=== PATIENT | male | born 1985 | race Caucasian/White ===

== ENCOUNTER 2017-06-02 15:37 | Emergency (ER) | payer BC ==
[2017-06-02] MEDS ORDERED: Sodium Chloride 0.9% 1,000 ML IV ONE (15:52)
--- NOTE | 2017-06-02 16:13 | EDM.PDOC ---
ED HPI GENERAL MEDICAL PROBLEM - General Chief Complaint: Abdominal Pain Stated Complaint: ABDOMINAL PAIN AND CHEST PAIN Time Seen by Provider: 06/02/17 15:43 Source of Information: Reports: Patient History Limitations: Reports: No Limitations - History of Present Illness INITIAL COMMENTS - FREE TEXT/NARRATIVE: History of present illness: []Patient has a three-day history of diarrhea and diffuse abdominal cramping. Patient states the day that it started he was working in 19 hour workday that was more physical than normal any drink energy drinks. He is having about 8 episodes of nonbloody diarrhea a day. He also has a history of chronic pancreatitis. Alcohol abuse. He states he hasn't had a drink of alcohol in a couple weeks. He denies any vomiting, fevers or chills. Review of systems: As per history of present illness and below otherwise all systems reviewed and negative. Past medical history: As per history of present illness and as reviewed below otherwise noncontributory. Surgical history: As per history of present illness and as reviewed below otherwise noncontributory. Social history: No reported history of drug or alcohol abuse. Family history: As per history of present illness and as reviewed below otherwise noncontributory. Physical exam: General: Well developed, well nourished in NAD HEENT: Atraumatic, normocephalic, pupils reactive, negative for conjunctival pallor or scleral icterus, mucous membranes moist, throat clear, neck supple, nontender, trachea midline. Lungs: Clear to auscultation, breath sounds equal bilaterally, chest nontender. Heart: S1S2, regular, negative for clicks, rubs, or JVD. Abdomen: Soft, nondistended, moderate tenderness diffusely no rebound or guarding. Negative for masses or hepatosplenomegaly. Negative for costovertebral tenderness. Pelvis: Stable nontender. Genitourinary: Deferred. Rectal: Deferred. Extremities: Atraumatic, negative for cords or calf pain. Neurovascular unremarkable. Neuro: Awake, alert, oriented. Cranial nerves II through XII unremarkable. Cerebellum unremarkable. Motor and sensory unremarkable throughout. Exam nonfocal. Diagnostics: []Labs done are completely normal patient did not have any episodes of diarrhea while in the ED Therapeutics: []IV hydrated she declined pain meds Impression: []Diarrhea Plan: []Tramadol for pain, Imodium for diarrhea return if symptoms worsen follow-up with PMD Definitive disposition and diagnosis as appropriate pending reevaluation and review of above. Abdominal Pain Score (Numeric/FACES): 7 - Related Data Allergies Allergy/AdvReac Type Severity Reaction Status Date / Time No Known Allergies Allergy Verified 06/02/17 15:50 Home Meds: Home Meds Lipase/Protease/Amylase [Zensujatap DR 20,000 Unit] 2 cap PO TIDMEALS 06/02/17 [ History] traMADol [Ultram] 50 mg PO Q8H PRN #10 tablet 06/02/17 [Rx] Past Medical History Gastrointestinal History: Reports: Pancreatitis - Infectious Disease History Infectious Disease History: Reports: Chicken Pox Social & Family History - Family History Family Medical History: Noncontributory - Tobacco Use Smoking Status *Q: Current Every Day Smoker Years of Tobacco use: 10 Packs/Tins Daily: 0.2 Used Tobacco, but Quit: No - Caffeine Use Caffeine Use: Reports: Coffee - Recreational Drug Use Recreational Drug Use: No ED ROS GENERAL - Review of Systems Review Of Systems: See Below (See history of present illness) ED EXAM, GI/ABD - Physical Exam Exam: See Below (See history of present illness) Course - Vital Signs Last Recorded V/S: Last Vital Signs Temp 37.0 C 06/02/17 15:53 Pulse 80 06/02/17 16:45 Resp 16 06/02/17 16:45 BP 128/79 06/02/17 16:45 Pulse Ox 98 06/02/17 16:45 - Orders/Labs/Meds Orders: Active Orders 24 hr Category Date Time Status EKG Documentation Completion [RC] STAT Care 06/02/17 15:47 Active Chest 1V Frontal [CR] Stat Exams 06/02/17 15:48 Taken Saline Lock Insert [OM.PC] Stat Oth 06/02/17 15:47 Ordered Labs: Laboratory Tests 06/02/17 06/02/17 06/02/17 Range/Units 15:52 15:52 15:52 WBC 10.52 (4.0-11.0) K/uL RBC 4.94 (4.50-5.90) M/uL Hgb 14.1 (13.0-17.0) g/dL Hct 42.3 (38.0-50.0) % MCV 85.6 (80.0-98.0) fL MCH 28.5 (27.0-32.0) pg MCHC 33.3 (31.0-37.0) g/dL RDW Std Deviation 43.2 (28.0-62.0) fl RDW Coeff of Anastasiia 14 (11.0-15.0) % Plt Count 315 (150-400) K/uL MPV 9.40 (7.40-12.00) fL Neut % (Auto) 62.3 (48.0-80.0) % Lymph % (Auto) 24.6 (16.0-40.0) % Major % (Auto) 10.5 (0.0-15.0) % Eos % (Auto) 2.1 (0.0-7.0) % Baso % (Auto) 0.5 (0.0-1.5) % Neut # (Auto) 6.6 H (1.4-5.7) K/uL Lymph # (Auto) 2.6 H (0.6-2.4) K/uL Major # (Auto) 1.1 H (0.0-0.8) K/uL Eos # (Auto) 0.2 (0.0-0.7) K/uL Baso # (Auto) 0.1 (0.0-0.1) K/uL Nucleated RBC % 0.0 /100WBC Nucleated RBCs # 0 K/uL Sodium 138 (136-146) mmol/L Potassium 3.9 (3.5-5.1) mmol/L Chloride 105 (98-110) mmol/L Carbon Dioxide 25 (21-31) mmol/L BUN 11 (6.0-23.0) mg/dL Creatinine 1.0 (0.6-1.5) mg/dL Est Cr Clr Drug Dosing 123.18 mL/min Estimated GFR (MDRD) > 60.0 ml/min Glucose 88 (60-110) mg/dL Calcium 8.9 (8.8-10.8) mg/dL Total Bilirubin 0.6 (0.1-1.5) mg/dL AST 22 (5-40) IU/L ALT 32 (8-54) IU/L Alkaline Phosphatase 70 (40-150) Troponin I < 0.10 (0.0-0.29) NG/ML Total Protein 7.0 (6.0-8.0) g/dL Albumin 4.2 (3.5-5.0) g/dL Globulin 2.8 (2.0-3.5) g/dL Albumin/Globulin Ratio 1.5 (1.3-2.8) Amylase 54 (10-90) U/L Lipase 19 (7-80) U/L Meds: Medications Discontinued Medications Generic Name Dose Route Start Last Admin Trade Name Freq PRN Reason Stop Dose Admin Sodium Chloride 1,000 mls @ 999 mls/hr 06/02/17 15:52 06/02/17 16:14 Normal Saline IV 06/02/17 16:52 999 mls/hr .Bolus ONE Administration Departure - Departure Time of Disposition: 17:21 Disposition: Home, Self-Care 01 Condition: Good Clinical Impression: Diarrhea Qualifiers: Diarrhea type: unspecified type Qualified Code(s): R19.7 - Diarrhea, unspecified - Discharge Information Prescriptions: traMADol [Ultram] 50 mg PO Q8H PRN #10 tablet PRN Reason: Pain Forms: ED Department Discharge Additional Instructions: The following information is given to patients seen in the emergency department who are being discharged to home. This information is to outline your options for follow-up care. We provide all patients seen in our emergency department with a follow-up referral. The need for follow-up, as well as the timing and circumstances, are variable depending upon the specifics of your emergency department visit. If you don't have a primary care physician on staff, we will provide you with a referral. We always advise you to contact your personal physician following an emergency department visit to inform them of the circumstance of the visit and for follow-up with them and/or the need for any referrals to a consulting specialist. The emergency department will also refer you to a specialist when appropriate. This referral assures that you have the opportunity for follow-up care with a specialist. All of these measure are taken in an effort to provide you with optimal care, which includes your follow-up. Under all circumstances we always encourage you to contact your private physician who remains a resource for coordinating your care. When calling for follow-up care, please make the office aware that this follow-up is from your recent emergency room visit. If for any reason you are refused follow-up, please contact the [facility] Emergency Department at and asked to speak to the emergency department charge nurse. Tramadol for pain, Imodium for diarrhea primary care [facility] [place] [id number] - My Orders Last 24 Hours: My Active Orders 06/02/17 15:47 EKG Documentation Completion [RC] STAT Saline Lock Insert [OM.PC] Stat 06/02/17 15:48 Chest 1V Frontal [CR] Stat - Assessment/Plan Last 24 Hours: My Active Orders 06/02/17 15:47 EKG Documentation Completion [RC] STAT Saline Lock Insert [OM.PC] Stat 06/02/17 15:48 Chest 1V Frontal [CR] Stat
[2017-06-02 16:29] LABS: CHLORIDE,CL 105 mmol/L (98-110); SODIUM,NA 138 mmol/L (136-146)
[2017-06-02 17:32] VITALS: BP 134/70
--- NOTE | 2017-06-03 10:36 | CR ---
EXAM DATE: 06/02/17 PATIENT'S AGE: 31 Patient: JJ CAMPOS Facility: [place], [place] Site . Site : 1985 Study: XRay Chest [id number]/24/2017 5:31:25 PM Ordering Physician: Jose Engle Final Report: INDICATION: chest pain, abd pain x3 days INDICATION: Chest and abdominal pain. TECHNIQUE: Chest 1 view. COMPARISON: None FINDINGS: Cardiovascular and mediastinum: Heart size and vasculature are normal in caliber and appearance. Mediastinum is within normal limits. Lungs and pleural space: Lungs are clear. No sign of infiltrate or mass. No sign of pleural effusion. No pneumothorax. Bones and soft tissues: No significant findings. IMPRESSION: Lungs are clear. Dictated by Lukasz Dillon MD @ 06/02/2017 5:56:28 PM Dictated by: Lukasz Dillon MD @ 06/02/2017 17:56:36 (Electronic Signature) Report Signed by Proxy. [facility] H[facility]ITAL[facility]ajaira
== END 2017-06-02 17:31 | disposition home or self-care (01) ==
LOC: MW.ED 15:37
DX: R19.7 Diarrhea, unspecified (principal); F17.210 Nicotine dependence, cigarettes, uncomplicated
CPT/HCPCS: 36415; 71010; 80053; 82150; 83690; 84484; 85025; 93005; 96360; 99285; J7040; 99283

== ENCOUNTER 2017-08-21 07:33 | Emergency (ER) | payer BC ==
[2017-08-21] MEDS ORDERED: cefTRIAXone 1,000 MG in Lidocaine 1% 4 ML IM ONE (08:15)
[2017-08-21] MEDS ORDERED: Azithromycin 250 MG Tab PO STA (08:15)
--- NOTE | 2017-08-21 08:17 | EDM.PDOC ---
ED HPI GENERAL MEDICAL PROBLEM - General Chief Complaint: Bite:Animal, Insect Stated Complaint: BUG BITE Time Seen by Provider: 08/21/17 08:17 Source of Information: Reports: Patient - History of Present Illness INITIAL COMMENTS - FREE TEXT/NARRATIVE: HISTORY AND PHYSICAL: History of present illness: []Patient presents with a complaint of spider bites on his penis shaft He does have 4 scabbed lesions on the distal penis that are tender nonvesicular at this time however certainly could've been there several days old has the appearance of herpes, he also has some inguinal swelling on bilateral inguinal lymph nodes Patient has had chlamydia before, he is in a monogamous relationship as reported by him No fever nausea vomiting diarrhea constipation chest pain shortness breath headache dizziness or palpitation no bowel or urine symptoms no discharge Review of systems: As per history of present illness and below otherwise all systems reviewed and negative. Past medical history: As per history of present illness and as reviewed below otherwise noncontributory. Surgical history: As per history of present illness and as reviewed below otherwise noncontributory. Social history: No reported history of drug or alcohol abuse. Family history: As per history of present illness and as reviewed below otherwise noncontributory. Physical exam: HEENT: Atraumatic, normocephalic, pupils reactive, negative for conjunctival pallor or scleral icterus, mucous membranes moist, throat clear, neck supple, nontender, trachea midline. Lungs: Clear to auscultation, breath sounds equal bilaterally, chest nontender. Heart: S1S2, regular, negative for clicks, rubs, or JVD. Abdomen: Soft, nondistended, nontender. Negative for masses or hepatosplenomegaly. Negative for costovertebral tenderness. Pelvis: Stable nontender. Genitourinary: Deferred. Rectal: Deferred. Extremities: Atraumatic, negative for cords or calf pain. Neurovascular unremarkable. Neuro: Awake, alert, oriented. Cranial nerves II through XII unremarkable. Cerebellum unremarkable. Motor and sensory unremarkable throughout. Exam nonfocal. Diagnostics: []Gonorrhea Chlamydia herpes HIV and syphilis are tested Therapeutics: []Rocephin 250 mg IM Azithromycin 1 g by mouth now Valtrex thousand milligrams by mouth twice a day #20 no refill Impression: []Genital lesions Inguinal lymph node swelling Definitive disposition and diagnosis as appropriate pending reevaluation and review of above. Perineal Area Pain Score (Numeric/FACES): 8 - Related Data Allergies Allergy/AdvReac Type Severity Reaction Status Date / Time No Known Allergies Allergy Verified 08/21/17 07:46 Home Meds: Home Meds Lipase/Protease/Amylase [Zenpep DR 20,000 Unit] 2 cap PO TIDMEALS 06/02/17 [ History] Hydrocodone/Acetaminophen [Britton 10-325 Tablet] 1 tab PO TID 08/21/17 [History] Past Medical History Gastrointestinal History: Reports: Pancreatitis - Infectious Disease History Infectious Disease History: Reports: Chicken Pox - Past Surgical History GI Surgical History: Reports: Colonoscopy Social & Family History - Family History Family Medical History: Noncontributory - Tobacco Use Smoking Status *Q: Current Every Day Smoker Years of Tobacco use: 15 Packs/Tins Daily: 0.5 Used Tobacco, but Quit: No - Caffeine Use Caffeine Use: Reports: Coffee - Recreational Drug Use Recreational Drug Use: Yes Drug Use in Last 12 Months: Yes Recreational Drug Type: Reports: Marijuana/Hashish Recreational Drug Use Frequency: Socially ED ROS GENERAL - Review of Systems Review Of Systems: ROS reveals no pertinent complaints other than HPI. ED EXAM, ANIMAL BITE - Physical Exam Exam: See Below Course - Vital Signs Last Recorded V/S: Last Vital Signs Temp 36.5 C 08/21/17 07:42 Pulse 94 08/21/17 07:42 Resp 16 08/21/17 07:42 BP 144/78 H 08/21/17 07:42 Pulse Ox 96 08/21/17 07:42 - Orders/Labs/Meds Orders: Active Orders 24 hr Category Date Time Status CHLAMYDIA AND GONORRHEA BY TMA Stat Lab 08/21/17 08:15 Ordered HERPES SIMPLEX VIR 1,2 IGG/IGM [REF] Stat Lab 08/21/17 08:28 Received HIV12 AG/AB 4TH GEN W/REFLEX [CHEM] Stat Lab 08/21/17 08:28 Received RPR [REF] Stat Lab 08/21/17 08:28 Received UA W/MICROSCOPIC [URIN] Stat Lab 08/21/17 08:31 Ordered Meds: Medications Discontinued Medications Generic Name Dose Route Start Last Admin Trade Name Freq PRN Reason Stop Dose Admin Azithromycin 1,000 mg 08/21/17 08:15 Zithromax PO 08/21/17 08:16 NOW STA Ceftriaxone Sodium 1,000 mg/ 4 mls @ 4 mls/sec 08/21/17 08:15 Lidocaine HCl IM 08/21/17 08:16 ONETIME ONE Departure - Departure Time of Disposition: 08:40 Disposition: Home, Self-Care 01 Condition: Good Clinical Impression: Genital lesion, male - Discharge Information Referrals: Fernando Tavera DO [Primary Care Provider] - Forms: ED Department Discharge Additional Instructions: Medications as prescribed Return if symptoms persist or worsen despite treatment Lab testing results generally take 2-3 days to return since it is and will likely be Friday before results are reported Follow-up with primary care next week to go over lab results and redirected treatment as necessary [facility] - Primary Care [address] [place] [id number] The following information is given to patients seen in the emergency department who are being discharged to home. This information is to outline your options for follow-up care. We provide all patients seen in our emergency department with a follow-up referral. The need for follow-up, as well as the timing and circumstances, are variable depending upon the specifics of your emergency department visit. If you don't have a primary care physician on staff, we will provide you with a referral. We always advise you to contact your personal physician following an emergency department visit to inform them of the circumstance of the visit and for follow-up with them and/or the need for any referrals to a consulting specialist. The emergency department will also refer you to a specialist when appropriate. This referral assures that you have the opportunity for follow-up care with a specialist. All of these measure are taken in an effort to provide you with optimal care, which includes your follow-up. Under all circumstances we always encourage you to contact your private physician who remains a resource for coordinating your care. When calling for follow-up care, please make the office aware that this follow-up is from your recent emergency room visit. If for any reason you are refused follow-up, please contact the [facility] emergency department at and asked to speak to the emergency department charge nurse. - My Orders Last 24 Hours: My Active Orders 08/21/17 08:15 CHLAMYDIA AND GONORRHEA BY TMA Stat 08/21/17 08:28 HERPES SIMPLEX VIR 1,2 IGG/IGM [REF] Stat HIV12 AG/AB 4TH GEN W/REFLEX [CHEM] Stat RPR [REF] Stat 08/21/17 08:31 UA W/MICROSCOPIC [URIN] Stat - Assessment/Plan Last 24 Hours: My Active Orders 08/21/17 08:15 CHLAMYDIA AND GONORRHEA BY TMA Stat 08/21/17 08:28 HERPES SIMPLEX VIR 1,2 IGG/IGM [REF] Stat HIV12 AG/AB 4TH GEN W/REFLEX [CHEM] Stat RPR [REF] Stat 08/21/17 08:31 UA W/MICROSCOPIC [URIN] Stat
[2017-08-21 09:18] VITALS: BP 130/78
== END 2017-08-21 08:57 | disposition home or self-care (01) ==
LOC: MW.ED 07:33
DX: L98.9 Disorder of the skin and subcutaneous tissue, unspecified (principal); F17.210 Nicotine dependence, cigarettes, uncomplicated
CPT/HCPCS: 81001; 86592; 86694; 86695; 86696; 87389; 87491; 87591; 96372; 99283; A9270; J0696; 36415; 99282

== ENCOUNTER 2018-08-04 08:58 | Emergency (ER) | payer SELFPAY ==
[2018-08-04] MEDS ORDERED: Aspirin 81 MG Tab.Chew PO ONE (09:18)
[2018-08-04] MEDS ORDERED: Sodium Chloride 0.9% 1,000 ML IV ONE (09:18)
[2018-08-04] MEDS ORDERED: Pantoprazole 40 MG Vial IVPUSH ONE (09:25)
--- NOTE | 2018-08-04 09:25 | EDM.PDOC ---
ED HPI GENERAL MEDICAL PROBLEM - General Chief Complaint: Chest Pain Stated Complaint: CHEST PAIN Time Seen by Provider: 08/04/18 09:24 Source of Information: Reports: Patient - History of Present Illness INITIAL COMMENTS - FREE TEXT/NARRATIVE: HISTORY AND PHYSICAL: History of present illness: [Patient with history of chronic pancreatitis presents with epigastric pain 5 out of 10 nonradiating no fever nausea vomiting chills sweats Denies alcohol intake for months ] Review of systems: As per history of present illness and below otherwise all systems reviewed and negative. Past medical history: As per history of present illness and as reviewed below otherwise noncontributory. Surgical history: As per history of present illness and as reviewed below otherwise noncontributory. Social history: No reported history of drug or alcohol abuse. Family history: As per history of present illness and as reviewed below otherwise noncontributory. Physical exam: HEENT: Atraumatic, normocephalic, pupils reactive, negative for conjunctival pallor or scleral icterus, mucous membranes moist, throat clear, neck supple, nontender, trachea midline. Lungs: Clear to auscultation, breath sounds equal bilaterally, chest nontender. Heart: S1S2, regular, negative for clicks, rubs, or JVD. Abdomen: Soft, nondistended, nontender. Negative for masses or hepatosplenomegaly. Negative for costovertebral tenderness. Pelvis: Stable nontender. Genitourinary: Deferred. Rectal: Deferred. Extremities: Atraumatic, negative for cords or calf pain. Neurovascular unremarkable. Neuro: Awake, alert, oriented. Cranial nerves II through XII unremarkable. Cerebellum unremarkable. Motor and sensory unremarkable throughout. Exam nonfocal. Diagnostics: [CBC CMP UA lipase troponin EKG Chest 1 view ]DT abdomen pelvis with contrast Therapeutics: [ normal saline Aspirin 324 mg chewable GI cocktail/proton X ][place] 5 per 325 #30 Clear liquids Follow-up with primary care Impression: Epigastric pain History of chronic pancreatitis Definitive disposition and diagnosis as appropriate pending reevaluation and review of above. Epigastric Pain Score (Numeric/FACES): 8 - Related Data Allergies Allergy/AdvReac Type Severity Reaction Status Date / Time No Known Allergies Allergy Verified 08/04/18 09:07 Home Meds: Home Meds Lipase/Protease/Amylase [Earnesitne NIXON 20,000 Unit] 2 cap PO TIDMEALS 06/02/17 [ History] Past Medical History Gastrointestinal History: Reports: Pancreatitis - Infectious Disease History Infectious Disease History: Reports: Chicken Pox - Past Surgical History GI Surgical History: Reports: Colonoscopy Social & Family History - Family History Family Medical History: Noncontributory - Tobacco Use Smoking Status *Q: Current Every Day Smoker Years of Tobacco use: 16 Packs/Tins Daily: 0.2 - Caffeine Use Caffeine Use: Reports: Coffee - Recreational Drug Use Recreational Drug Use: No ED ROS GENERAL - Review of Systems Review Of Systems: See Below ED EXAM, GENERAL - Physical Exam Exam: See Below Course - Vital Signs Last Recorded V/S: Last Vital Signs Temp 97.9 F 08/04/18 09:05 Pulse 99 08/04/18 09:05 Resp 18 08/04/18 09:05 BP 141/94 H 08/04/18 09:05 Pulse Ox 99 08/04/18 09:05 - Orders/Labs/Meds Orders: Active Orders 24 hr Category Date Time Status EKG Documentation Completion [RC] STAT Care 08/04/18 09:18 Active Labs: Laboratory Tests 08/04/18 08/04/18 08/04/18 Range/Units 09:15 09:15 10:45 WBC 8.24 (4.0-11.0) K/uL RBC 5.04 (4.50-5.90) M/uL Hgb 14.8 (13.0-17.0) g/dL Hct 44.0 (38.0-50.0) % MCV 87.3 (80.0-98.0) fL MCH 29.4 (27.0-32.0) pg MCHC 33.6 (31.0-37.0) g/dL RDW Std Deviation 42.4 (28.0-62.0) fl RDW Coeff of Anastasiia 13 (11.0-15.0) % Plt Count 315 (150-400) K/uL MPV 8.80 (7.40-12.00) fL Neut % (Auto) 69.7 (48.0-80.0) % Lymph % (Auto) 18.9 (16.0-40.0) % Green % (Auto) 10.0 (0.0-15.0) % Eos % (Auto) 1.2 (0.0-7.0) % Baso % (Auto) 0.2 (0.0-1.5) % Neut # (Auto) 5.7 (1.4-5.7) K/uL Lymph # (Auto) 1.6 (0.6-2.4) K/uL Green # (Auto) 0.8 (0.0-0.8) K/uL Eos # (Auto) 0.1 (0.0-0.7) K/uL Baso # (Auto) 0.0 (0.0-0.1) K/uL Nucleated RBC % 0.0 /100WBC Nucleated RBCs # 0 K/uL Sodium 140 (136-148) mmol/L Potassium 4.2 (3.5-5.1) mmol/L Chloride 105 (98-107) mmol/L Carbon Dioxide 27.5 (21.0-32.0) mmol/L BUN 10 (7.0-18.0) mg/dL Creatinine 1.0 (0.8-1.3) mg/dL Est Cr Clr Drug Dosing 120.96 mL/min Estimated GFR (MDRD) > 60.0 ml/min Glucose 107 H (74-106) mg/dL Calcium 9.1 (8.5-10.1) mg/dL Total Bilirubin 1.3 H (0.2-1.0) mg/dL AST 23 (15-37) IU/L ALT 47 (14-63) IU/L Alkaline Phosphatase 66 (46-116) U/L Troponin I < 0.050 (0.000-0.056) ng/mL Total Protein 7.5 (6.4-8.2) g/dL Albumin 4.3 (3.4-5.0) g/dL Globulin 3.2 (2.0-3.5) g/dL Albumin/Globulin Ratio 1.3 (1.3-2.8) Lipase 109 (73-393) U/L Urine Color YELLOW Urine Appearance CLEAR Urine pH 7.0 (5.0-8.0) Ur Specific [place] <= 1.005 (1.001-1.035) Urine Protein NEGATIVE (NEGATIVE) mg/dL Urine Glucose (UA) NEGATIVE (NEGATIVE) mg/dL Urine Ketones NEGATIVE (NEGATIVE) mg/dL Urine Occult Blood NEGATIVE (NEGATIVE) Urine Nitrite NEGATIVE (NEGATIVE) Urine Bilirubin NEGATIVE (NEGATIVE) Urine Urobilinogen 0.2 (<2.0) EU/dL Ur Leukocyte Esterase NEGATIVE (NEGATIVE) Urine RBC 0-1 (0-2/HPF) Urine WBC 0-1 (0-5/HPF) Ur Epithelial Cells RARE (NONE-FEW) Urine Bacteria RARE (NEGATIVE) Meds: Medications Discontinued Medications Generic Name Dose Route Start Last Admin Trade Name Jagjitq PRN Reason Stop Dose Admin Aspirin 324 mg 08/04/18 09:18 08/04/18 09:26 Aspirin PO 08/04/18 09:19 324 mg ONETIME ONE Administration Al Hydroxide/Mg Hydroxide 15 0 ml 08/04/18 11:23 08/04/18 11:39 ml/ Metoclopramide HCl 5 mg/ PO 08/04/18 11:24 1 each Lidocaine HCl 5 ml ONETIME ONE Administration Sodium Chloride 1,000 mls @ 999 mls/hr 08/04/18 09:18 08/04/18 09:26 Normal Saline IV 08/04/18 10:18 999 mls/hr STAT ONE Administration Iopamidol 100 ml 08/04/18 11:49 08/04/18 11:50 Isovue Multipack-370 (76%) IVPUSH 08/04/18 11:50 100 ml ONETIME ONE Administration Pantoprazole Sodium 80 mg 08/04/18 09:25 08/04/18 09:50 Protonix Iv IVPUSH 08/04/18 09:26 80 mg .BOLUS ONE Administration Departure - Departure Time of Disposition: 12:32 Disposition: Home, Self-Care 01 Condition: Good Clinical Impression: Abdominal pain - Discharge Information Forms: ED Department Discharge Additional Instructions: The following information is given to patients seen in the emergency department who are being discharged to home. This information is to outline your options for follow-up care. We provide all patients seen in our emergency department with a follow-up referral. The need for follow-up, as well as the timing and circumstances, are variable depending upon the specifics of your emergency department visit. If you don't have a primary care physician on staff, we will provide you with a referral. We always advise you to contact your personal physician following an emergency department visit to inform them of the circumstance of the visit and for follow-up with them and/or the need for any referrals to a consulting specialist. The emergency department will also refer you to a specialist when appropriate. This referral assures that you have the opportunity for follow-up care with a specialist. All of these measure are taken in an effort to provide you with optimal care, which includes your follow-up. Under all circumstances we always encourage you to contact your private physician who remains a resource for coordinating your care. When calling for follow-up care, please make the office aware that this follow-up is from your recent emergency room visit. If for any reason you are refused follow-up, please contact the [facility] emergency department at and asked to speak to the emergency department charge nurse. - My Orders Last 24 Hours: My Active Orders 08/04/18 09:18 EKG Documentation Completion [RC] STAT - Assessment/Plan Last 24 Hours: My Active Orders 08/04/18 09:18 EKG Documentation Completion [RC] STAT
[2018-08-04 09:53] LABS: CHLORIDE,CL 105 mmol/L (98-107); SODIUM,NA 140 mmol/L (136-148)
--- NOTE | 2018-08-04 10:18 | CR ---
EXAMINATION: Portable chest radiograph. HISTORY: Shortness of breath. FINDINGS: The trachea is midline. The cardiomediastinal silhouette is within normal limits. No pulmonary infilt rates, effusions or pneumothorax. Osseous structures appear unremarkable. IMPRESSION: No acute cardiopulmonary process.
[2018-08-04] MEDS ORDERED: Alum Hydrox/Mag Hydrox/Simeth 15 ML, Metoclopramide 5 MG, Lidocaine 2% 5 ML PO ONE ×3 (11:23)
[2018-08-04] MEDS ORDERED: Iopamidol 755 MG/ML 500 ML Multipack Bottle IVPUSH ONE (11:49)
--- NOTE | 2018-08-04 12:05 | CT ---
CT of the abdomen and pelvis with contrast. HISTORY: Pain TECHNIQUE: Axial CT images were obtained of the abdomen and pelvis following administration of 100 mL of Isovue-370 in the left antecubital fossa without complication. Coronal and sagittal reconstructio ns obtained. FINDINGS: The lung bases are clear, no pleural effusion. The liver, spleen, adrenal glands, and pancreas appear normal. The gallbladder is normal. There is no bulky retroperitoneal lymphadenopathy or abdominal ascites. There is a tiny fat-containing supraumbi lical hernia. The kidneys enhance and function symmetrically without evidence of obstructive uropathy. The large and small bowel are normal in caliber without evidence of obstruction. No focal pericolonic inflammation or stranding. There is mild induration within the right inguinal region without underly ing lymphadenopathy. The urinary bladder is normal. No suspicious osseous abnormalities identified. IMPRESSION: 1. Mild soft tissue induration within the right inguinal region without underlying abnormality. 2. No acute findings noted within the abdomen or pelvis.
[2018-08-04 17:33] VITALS: BP 160/108
== END 2018-08-04 12:50 | disposition home or self-care (01) ==
LOC: MW.ED 08:58
DX: R10.13 Epigastric pain (principal); F17.210 Nicotine dependence, cigarettes, uncomplicated
CPT/HCPCS: 71045; 74177; 80053; 81001; 83690; 84484; 85025; 96361; 96374; 99285; A9270; C9113; J7040; Q9967

== ENCOUNTER 2018-08-05 21:40 | Emergency (ER) | payer BC ==
--- NOTE | 2018-08-05 22:22 | EDM.PDOC ---
ED HPI GENERAL MEDICAL PROBLEM - General Chief Complaint: Genitourinary Problem Stated Complaint: PT HAS RASH Time Seen by Provider: 08/05/18 21:42 Source of Information: Reports: Patient History Limitations: Reports: No Limitations - History of Present Illness INITIAL COMMENTS - FREE TEXT/NARRATIVE: HISTORY AND PHYSICAL: History of present illness: 33-year-old male presenting emergency department with chief complaint of right ischial Giller and inguinal pain 1 day with past medical history of chronic pancreatitis. Patient states that around 4:30 this morning he woke up and noticed some mild right testicular pain that radiated into his right groin. Throughout the day the pain worsened and there was significant increase in swelling and erythema to the right scrotum and inguinal area. He did take the last two Valtrex that he had been prescribed previously today. Patient states that he has had similar symptoms in the past and was here and diagnosed with genital herpes by Dr. Richardson. States that at that time he was given a shot as well as a prescription for valacyclovir. States that the initial shot seemed to relieve all his symptoms for the next few days. He did not take any of the valacyclovir initially. He denies any penial drainage, fever, chills, abdominal pain, cough, sore throat or other signs of systemic infection. On exam there is no tenderness to the right testicle however there is erythema noted to the right scrotum extending into the right inguinal area. There is also swelling and significant lymphadenopathy in the right inguinal area which is painful to palpation. Right testicle is descended and does not appear to be torsed. No lesions noted on penis or scrotum. No other significant findings. Review of systems: As per history of present illness and below otherwise all systems reviewed and negative. Past medical history: As per history of present illness and as reviewed below otherwise noncontributory. Surgical history: As per history of present illness and as reviewed below otherwise noncontributory. Social history: No reported history of drug or alcohol abuse. Family history: As per history of present illness and as reviewed below otherwise noncontributory. Physical exam: HEENT: Atraumatic, normocephalic, pupils reactive, negative for conjunctival pallor or scleral icterus, mucous membranes moist, throat clear, neck supple, nontender, trachea midline. Lungs: Clear to auscultation, breath sounds equal bilaterally, chest nontender. Heart: S1S2, regular, negative for clicks, rubs, or JVD. Abdomen: Soft, nondistended, nontender. Negative for masses or hepatosplenomegaly. Negative for costovertebral tenderness. Pelvis: Stable nontender. Genitourinary: See above H&P Rectal: Deferred. Extremities: Atraumatic, negative for cords or calf pain. Neurovascular unremarkable. Neuro: Awake, alert, oriented. Cranial nerves II through XII unremarkable. Cerebellum unremarkable. Motor and sensory unremarkable throughout. Exam nonfocal. Diagnostics: HSV, chlamydia, gonorrhea, HIV, RPR, testicular ultrasound Therapeutics: Rocephin 250 mg IM 1, azithromycin 1 g by mouth, Valtrex 500 mg by mouth twice a day #20 Impression: Inguinal pain and swelling Herpes simplex Plan: As per above H&P. He has previously been diagnosed with herpes simplex virus. HIV was negative but all other labs were pending during discharge. I did tell him that we would call him if there are any positive results. Testicular ultrasound showed mild nonspecific right inguinal lymphadenopathy and multiple small calcifications present in the testicles but no sign of mass, inflammation , or torsion. This was all discussed with the patient. Secondary to pending labs as well as his previous visit with Dr. Richardson I did give him Rocephin 250 mg IM as well as azithromycin 1 g by mouth and give him a prescription for valtrex 500 mg by mouth twice a day 3 days #20. Instructed him to follow-up with primary care provider and return to emergency permanently any new or worsening symptoms. Definitive disposition and diagnosis as appropriate pending reevaluation and review of above. testicle Pain Score (Numeric/FACES): 8 - Related Data Allergies Allergy/AdvReac Type Severity Reaction Status Date / Time No Known Allergies Allergy Verified 08/05/18 22:00 Home Meds: Home Meds . [No Known Home Meds] 08/05/18 [History] Past Medical History Gastrointestinal History: Reports: Pancreatitis - Infectious Disease History Infectious Disease History: Reports: Chicken Pox - Past Surgical History GI Surgical History: Reports: Colonoscopy Social & Family History - Family History Family Medical History: Noncontributory - Tobacco Use Smoking Status *Q: Current Every Day Smoker Years of Tobacco use: 16 Packs/Tins Daily: 1 - Caffeine Use Caffeine Use: Reports: Coffee - Recreational Drug Use Recreational Drug Use: No ED ROS GENERAL - Review of Systems Review Of Systems: ROS reveals no pertinent complaints other than HPI. ED EXAM, GENERAL - Physical Exam Exam: See Below Course - Vital Signs Last Recorded V/S: Last Vital Signs Temp 98 F 08/05/18 23:07 Pulse 76 08/05/18 23:07 Resp 18 08/05/18 23:07 BP 137/85 08/05/18 23:07 Pulse Ox 97 08/05/18 23:07 - Orders/Labs/Meds Orders: Active Orders 24 hr Category Date Time Status Scrotal Duplex Ltd [US] Stat Exams 08/05/18 22:14 Taken Scrotum and Contents [US] Stat Exams 08/05/18 22:14 Taken CHLAMYDIA AND GONORRHEA BY TMA Stat Lab 08/05/18 22:10 Received HSV TYPE SPECIFIC IMMUNOBLOT [REF] Stat Lab 08/05/18 22:30 Received RPR [REF] Stat Lab 08/05/18 22:30 Received Labs: Laboratory Tests 08/05/18 Range/Units 22:30 HIV 1&2 Ag/Ab, 4th Gen 0.1 (<1.0) Meds: Medications Discontinued Medications Generic Name Dose Route Start Last Admin Trade Name Kaylin PRN Reason Stop Dose Admin Azithromycin 1,000 mg 08/05/18 23:48 Zithromax PO 08/05/18 23:49 NOW STA Ceftriaxone Sodium 250 mg 08/05/18 23:46 Rocephin IM 08/05/18 23:47 ONETIME ONE Lidocaine HCl Confirm 08/05/18 23:54 Xylocaine-Mpf 1% Administered 08/05/18 23:55 Dose 2 mls @ as directed .ROUTE .STK-MED ONE Departure - Departure Time of Disposition: 23:54 Disposition: Home, Self-Care 01 Condition: Good Clinical Impression: Deep inguinal pain, right, Lymphadenopathy, HSV (herpes simplex virus) infection - Discharge Information Referrals: PCP,None [Primary Care Provider] - Forms: ED Department Discharge Additional Instructions: My general discharge The following information is given to patients seen in the emergency department who are being discharged to home. This information is to outline your options for follow-up care. We provide all patients seen in our emergency department with a follow-up referral. The need for follow-up, as well as the timing and circumstances, are variable depending upon the specifics of your emergency department visit. If you don't have a primary care physician on staff, we will provide you with a referral. We always advise you to contact your personal physician following an emergency department visit to inform them of the circumstance of the visit and for follow-up with them and/or the need for any referrals to a consulting specialist. The emergency department will also refer you to a specialist when appropriate. This referral assures that you have the opportunity for follow-up care with a specialist. All of these measure are taken in an effort to provide you with optimal care, which includes your follow-up. Under all circumstances we always encourage you to contact your private physician who remains a resource for coordinating your care. When calling for follow-up care, please make the office aware that this follow-up is from your recent emergency room visit. If for any reason you are refused follow-up, please contact the [facility] Emergency Department at and asked to speak to the emergency department charge nurse. [facility] [address] [place] [phone] Please call and follow-up with primary care provider. Be sure to tell them you were seen in the emergency department and they wish for you to be seen as soon as possible. Take medication as prescribed. Return to emergency department if any new or worsening symptoms as we discussed. - My Orders Last 24 Hours: My Active Orders 08/05/18 22:10 CHLAMYDIA AND GONORRHEA BY TMA Stat 08/05/18 22:14 Scrotal Duplex Ltd [US] Stat Scrotum and Contents [US] Stat 08/05/18 22:30 HSV TYPE SPECIFIC IMMUNOBLOT [REF] Stat RPR [REF] Stat - Assessment/Plan Last 24 Hours: My Active Orders 08/05/18 22:10 CHLAMYDIA AND GONORRHEA BY TMA Stat 08/05/18 22:14 Scrotal Duplex Ltd [US] Stat Scrotum and Contents [US] Stat 08/05/18 22:30 HSV TYPE SPECIFIC IMMUNOBLOT [REF] Stat RPR [REF] Stat
[2018-08-05] MEDS ORDERED: cefTRIAXone 250 MG Vial IM ONE (23:46)
[2018-08-05] MEDS ORDERED: Azithromycin 250 MG Tab PO STA (23:48)
[2018-08-05] MEDS ORDERED: Lidocaine 1% 2 ML ONE (23:54)
[2018-08-06 00:16] VITALS: BP 135/93
--- NOTE | 2018-08-06 11:23 | US ---
EXAM DATE: 08/05/18 PATIENT'S AGE: 33 Patient: JJ CAMPOS Facility: [place], [place] Site . Site : 1985 Study: US Testicle [id number] 10:55:54 PM Ordering Physician: Jacob Kiran Final Report: Indication: Right testicular pain Technique: Ultrasound of the scrotum and contents. Sonographic cedeño-scale images were obtained with spectral and color Doppler waveform and spectral waveform analysis of the testicles. Comparison: None Findings: Bother testicles are normal in size and echotexture. No masses. Several calcifications are present in each testicle.. Normal arterial and venous color Doppler blood flow and spectral waveforms are present in both testicles. Epididymis: Unremarkable bilaterally. Normal blood flow. Other: No sign of hydrocele. No sign of varicocele. Scrotal wall is normal. There is a mildly enlarged lymph node in the right inguinal region. Impression: 1. Mild nonspecific right inguinal lymphadenopathy. 2. Multiple small calcifications are present in the testicles. No sign of mass, inflammation or torsion. Dictated by Jeff Osei MD @ Aug 05 2018 11:11PM (Electronic Signature) Report Signed by Proxy. CRYS
--- NOTE | 2018-08-06 11:24 | US ---
EXAM DATE: 08/05/18 PATIENT'S AGE: 33 Patient: JJ CAMPOS Facility: [place], [place] Site . Site : 1985 Study: US Testicle [id number] 10:55:54 PM Ordering Physician: Jacob Kiran Final Report: Indication: Right testicular pain Technique: Ultrasound of the scrotum and contents. Sonographic cedeño-scale images were obtained with spectral and color Doppler waveform and spectral waveform analysis of the testicles. Comparison: None Findings: Bother testicles are normal in size and echotexture. No masses. Several calcifications are present in each testicle.. Normal arterial and venous color Doppler blood flow and spectral waveforms are present in both testicles. Epididymis: Unremarkable bilaterally. Normal blood flow. Other: No sign of hydrocele. No sign of varicocele. Scrotal wall is normal. There is a mildly enlarged lymph node in the right inguinal region. Impression: 1. Mild nonspecific right inguinal lymphadenopathy. 2. Multiple small calcifications are present in the testicles. No sign of mass, inflammation or torsion. Dictated by Jeff Osei MD @ Aug 05 2018 11:11PM (Electronic Signature) Report Signed by Proxy. CRYS
== END 2018-08-06 00:20 | disposition home or self-care (01) ==
LOC: MW.ED 21:40
DX: B00.9 Herpesviral infection, unspecified (principal); R59.0 Localized enlarged lymph nodes; F17.210 Nicotine dependence, cigarettes, uncomplicated
CPT/HCPCS: 76870; 84181; 86592; 87389; 87491; 87591; 93976; 96372; 99284; A9270; J0696; J2001; 99283